=== PATIENT | male | born 1960 ===

== ENCOUNTER → 2024-10-02 | Outpatient (CLI) | payer OTHER | END | disposition home or self-care (01) | LOC: TELEHEALTH 07:24 | PROVIDERS: ATTEND Neurological Surgery | DX: G31.89 Other specified degenerative diseases of nervous system (principal); M48.07 Spinal stenosis, lumbosacral region; G89.29 Other chronic pain; M54.50 Low back pain, unspecified | CPT/HCPCS: Q3014 ==